=== PATIENT | female | born 1980 | race African-American/Black ===

== ENCOUNTER → 2023-11-13 11:29 | Outpatient (REF) | payer OTHER, SELFPAY ==
[2023-11-13 16:17] LABS: Rubella Low Positive
[2023-11-15 17:33] LABS: Quantiferon Mitogen minus NIL 9.99 IU/mL; Quantiferon NIL 0.01 IU/mL; Quantiferon Plus TB1 minus NIL 0.01 IU/mL (<=0.34); Quantiferon TB Gold Plus Negative (Negative)
== END ==
LOC: OHS 11:29
PROVIDERS: ATTENDING PHYSICIAN Nurse Practitioner Family
DX: Z23 Encounter for immunization (principal)
CPT/HCPCS: 36415; 86480; 86706; 86735; 86762; 86765; 86787